=== PATIENT | male | born 1950 | race Caucasian/White ===

== ENCOUNTER 2016-12-17 08:09 | Day surgery (SDC) | payer MEDICARE, OTHER ==
[~2016-12-17] VITALS: Ht 182.9 cm; Wt 72.9 kg
[~2016-12-17 08:09] MED LIST: ACET-784 PO; ACETAMINOPHEN 325 MG TABLET PO PRN; ALEN70TA48 PO; AcetaZOLAMIDE 250 MG TABLET PO ONE; BRINOS OU; COMB5OS OU; FERR-89 PO; FINA5TAB41 PO; FentaNYL CITRATE-PF 100 MCG/2 ML VIAL IVP ONE; HALO5TAB23 PO; LEVE500T53 PO; LORA10TA7 PO; MIDAZOLAM HCL 2 MG/2 ML VIAL IVP ONE; OS500 PO; RINGERS SOLUTION,LACTATED 500 ML IV ONE; TAMS0.4C32 PO; TETRACAINE HCL 0.5% 2 ML OPHTHALMIC SOLUTION OS ONE; XALA2.5OS OU
[2016-12-17] MEDS ORDERED: RINGERS SOLUTION,LACTATED 500 ML IV ONE (08:20)
[2016-12-17] MEDS ORDERED: PHENYLEPHRINE HCL 2.5% 2 ML OPHTHALMIC SOLUTION ONE (08:21)
[2016-12-17] MEDS ORDERED: TROPICAMIDE 1% 2 ML OPHTHALMIC SOLUTION ONE (08:21)
[2016-12-17] MEDS ORDERED: DICLOFENAC SODIUM 0.1% 2.5 ML OPHTHALMIC SOLUTION ONE (08:21)
[2016-12-17] MEDS ORDERED: GATIFLOXACIN 0.5% 2.5 ML OPHTHALMIC SOLUTION ONE (08:21)
[2016-12-17] MEDS ORDERED: TETRACAINE HCL 0.5% 2 ML OPHTHALMIC SOLUTION ONE (08:21)
[2016-12-17] MEDS ORDERED: CYCLOPENTOLATE HCL 2% 2 ML OPHTHALMIC SOLUTION ONE (08:49)
[2016-12-17] MEDS: PHENYLEPHRINE HCL 2.5% 2 ML OPHTHALMIC SOLUTION OS SCH ×3 (08:50→09:04)
[2016-12-17] MEDS: CYCLOPENTOLATE HCL 2% 2 ML OPHTHALMIC SOLUTION OS SCH ×3 (08:50→09:04)
[2016-12-17] MEDS: GATIFLOXACIN 0.5% 2.5 ML OPHTHALMIC SOLUTION OS SCH ×3 (08:51→09:12)
[2016-12-17] MEDS: DICLOFENAC SODIUM 0.1% 2.5 ML OPHTHALMIC SOLUTION OS SCH ×3 (08:51→09:12)
[2016-12-17] MEDS ORDERED: AcetaZOLAMIDE 250 MG TABLET ONE (11:15)
[2016-12-17] MEDS ORDERED: EPINEPHrine 1:1,000 [1 MG/ML] AMP IVP ONE (16:43)
[2016-12-17] MEDS ORDERED: LIDOCAINE HCL/PF 1% 2 ML VIAL IM ONE (16:43)
[2016-12-17] MEDS ORDERED: TETRACAINE HCL 0.5% 2 ML OPHTHALMIC SOLUTION OS ONE (16:43)
[2016-12-17] MEDS ORDERED: BRIMONIDINE TARTRATE 0.15% 5 ML OPHTHALMIC SOLUTION OS ONE (16:43)
[2016-12-17] MEDS ORDERED: POVIDONE-IODINE 10% 15 ML SOLUTION UD TP ONE (16:43)
[2016-12-17] MEDS ORDERED: TETRACAINE HCL VISCOUS 0.5% 0.6 ML OPHTHALMIC SOLUTION OS ONE (16:43)
[2016-12-17] MEDS ORDERED: HYALURONATE SOD/CHONDROITIN SOD 0.5 ML VIAL IO ONE (16:43)
[2016-12-17] MEDS ORDERED: HYALURONATE SODIUM 12 MG/ML 0.8 ML SYRINGE IO ONE (16:43)
[2016-12-17] MEDS ORDERED: MOXIFLOXACIN HCL 0.5% 3 ML OPHTHALMIC SOLUTION OS ONE (16:43)
== END 2016-12-17 12:05 | disposition home or self-care (01) ==
LOC: SURGERY 08:09
PROVIDERS: ATTEND Ophthalmology
DX: H26.9 Unspecified cataract (principal); D64.9 Anemia, unspecified; F20.9 Schizophrenia, unspecified; I10 Essential (primary) hypertension; J44.9 Chronic obstructive pulmonary disease, unspecified; M81.0 Age-related osteoporosis without current pathological fracture; M19.90 Unspecified osteoarthritis, unspecified site; F41.9 Anxiety disorder, unspecified; Z98.41 Cataract extraction status, right eye; Z86.73 Personal history of transient ischemic attack (TIA), and cerebral infarction without residual deficits
CPT/HCPCS: 66982; 93005; C1780; J2250; J3010; J7120; J0171; J3490